=== PATIENT | female | born 1980 | race Caucasian/White ===

== ENCOUNTER 2018-04-07 06:41 | Emergency (ER) | payer OTHER, MEDICAID | END 2018-04-07 07:26 | disposition home or self-care (01) | LOC: FTE 06:41 | DX: N89.8 Other specified noninflammatory disorders of vagina (principal); L30.9 Dermatitis, unspecified | CPT/HCPCS: 99283; Z7502 ==

== ENCOUNTER 2018-05-03 19:08 | Emergency (ER) | payer OTHER | END 2018-05-04 00:11 | disposition home or self-care (01) | LOC: FTE 05-04 00:11 | DX: S90.31XA Contusion of right foot, initial encounter (principal); R40.2412 Glasgow coma scale score 13-15, at arrival to emergency department; W20.8XXA Other cause of strike by thrown, projected or falling object, initial encounter; Y92.89 Other specified places as the place of occurrence of the external cause | CPT/HCPCS: 73630; 99283-25 ==

== ENCOUNTER 2019-02-01 11:51 | Emergency (ER) | payer OTHER ==
[2019-02-01] MEDS: ACETAMINOPHEN 500 MG TAB PO (13:25)
== END 2019-02-01 13:53 | disposition home or self-care (01) ==
LOC: FTE 11:51
DX: J01.00 Acute maxillary sinusitis, unspecified (principal)
CPT/HCPCS: 99282; Z7502